=== PATIENT | male | born 1970 | race Caucasian/White ===

== ENCOUNTER 2020-05-20 23:50 | Emergency (ER) | payer SELFPAY ==
[~2020-05-20] VITALS: Ht 152.4 cm; Wt 55.0 kg
[2020-05-21] MEDS ORDERED: ONDANSETRON HCL 4MG/2ML INJ IV STA (00:52)
[2020-05-21 06:30] VITALS: BP 106/62
== END 2020-05-21 06:30 | disposition home or self-care (01) ==
LOC: ER 23:50
DX: F10.229 Alcohol dependence with intoxication, unspecified (principal); G93.49 Other encephalopathy; Y90.8 Blood alcohol level of 240 mg/100 ml or more
CPT/HCPCS: 36415; 80320; 99283; G0480